=== PATIENT | male | born 1970 | race American Indian/Alaskan Native ===

== ENCOUNTER 2017-03-13 13:19 | Emergency (ER) | payer BC ==
[2017-03-13 13:29] VITALS: BP 147/83
[2017-03-13] MEDS ORDERED: NACL 0.9% 1000 ML 1,000 ML IV ONE (14:05)
[2017-03-13] MEDS ORDERED: PEPCID IV ONE (14:05)
[2017-03-13] MEDS ORDERED: BENADRYL IV ONE (16:09)
--- NOTE | 2017-03-13 18:43 | Emergency Department Report ---
Entered by FILIPPO SANTOS, acting as scribe for BRITTANY MCCOLLUM NP. ED Allergic Reaction HPI - General Chief complaint: Allergic Reaction Stated complaint: ALLERGIC REACTION Time Seen by Provider: 03/13/17 14:03 Source: patient Mode of arrival: Ambulatory Limitations: No Limitations - History of Present Illness Initial Comments: This is a 47 y/o male, nontoxic, well nourished in appearance, no acute signs of distress with a PMHx of IDDM presents with an allergic reaction that began this morning. Patient states he was stung by a bee on his right hand and left arm and subsequently began to have itching to his right hand and left arm. Patient denies any facial swelling, lip/tongue swelling, rash, hoarseness, throat closing sensation, nausea, vomiting, , fever, chills, drroling, hoarseness, chest pain, SOB, MEMBRENO or dizziness, numbness, and tingling. Took Bendaryl 1 hour [employer] with no relief. NKDA. CHATTERJEE Complaint: allergic reaction -: This morning Exposure: insect bite (bee sting) Symptoms: itching (to right hand and left arm) Severity: mild Treatment Prior to Arrival: benadryl Previous Allergy History: none - Related Data Previous Rx's Medication Instructions Recorded Last Taken Type diphenhydrAMINE [Benadryl CAP] 25 mg PO Q6HR PRN #20 capsule 03/13/17 Unknown Rx predniSONE [Deltasone] 20 mg PO BID #10 tab 03/13/17 Unknown Rx Allergies Allergy/AdvReac Type Severity Reaction Status Date / Time No Known Allergies Allergy Unverified 03/13/17 13:26 ED Review of Systems Comment: All other systems reviewed and negative Constitutional: denies: chills, fever Eyes: denies: eye pain, eye discharge, vision change ENT: denies: ear pain, throat pain, dental pain, hearing loss, epistaxis, congestion Respiratory: denies: cough, orthopnea, shortness of breath, SOB with exertion, SOB at rest, stridor, wheezing Cardiovascular: denies: chest pain, palpitations, dyspnea on exertion, orthopnea , edema, syncope, paroxysmal nocturnal dyspnea Endocrine: no symptoms reported Gastrointestinal: denies: abdominal pain, nausea, vomiting, diarrhea Genitourinary: denies: urgency, dysuria Musculoskeletal: denies: back pain, joint swelling, arthralgia Skin: other (itching to right hand and left arm). denies: rash, lesions Neurological: denies: headache, weakness, paresthesias Psychiatric: denies: anxiety, depression Hematological/Lymphatic: denies: easy bleeding, easy bruising ED Past Medical Hx - Past Medical History Previous Medical History?: Yes Hx Diabetes: Yes - Surgical History Past Surgical History?: Yes Additional Surgical History: left knee - Family History Family history: no significant - Social History Smoking Status: Never Smoker Substance Use Type: None - Medications Home Medications: Home Medications Medication Instructions Recorded Confirmed Last Taken Type diphenhydrAMINE [Benadryl CAP] 25 mg PO Q6HR PRN #20 capsule 03/13/17 Unknown Rx predniSONE [Deltasone] 20 mg PO BID #10 tab 03/13/17 Unknown Rx ED Physical Exam - General Limitations: No Limitations General appearance: alert, in no apparent distress - Head Head exam: Present: atraumatic, normocephalic, normal inspection, other (no facial edema noted) - Eye Eye exam: Present: normal appearance, PERRL, EOMI. Absent: scleral icterus, conjunctival injection, nystagmus, periorbital swelling, periorbital tenderness Pupils: Present: normal accommodation - ENT ENT exam: Present: normal exam, normal orophraynx, mucous membranes moist, TM's normal bilaterally, normal external ear exam - Expanded ENT Exam Expanded Ear exam: Present: normal external inspection Mouth exam: Present: normal external inspection, tongue normal, other (no angioedema or lip swelling present). Absent: drooling, trismus, muffled voice, tongue elevation, laceration Teeth exam: Present: normal inspection Throat exam: Positive: normal inspection. Negative: tonsillar erythema, tonsillomegaly, tonsillar exudate, R peritonsillar mass, L peritonsillar mass - Neck Neck exam: Present: normal inspection, full ROM. Absent: tenderness, meningismus, lymphadenopathy, thyromegaly - Respiratory Respiratory exam: Present: normal lung sounds bilaterally. Absent: respiratory distress, wheezes, rales, rhonchi, stridor, chest wall tenderness, accessory muscle use, decreased breath sounds, prolonged expiratory - Cardiovascular Cardiovascular Exam: Present: regular rate, normal rhythm, normal heart sounds. Absent: systolic murmur, diastolic murmur, rubs, gallop - GI/Abdominal GI/Abdominal exam: Present: soft, normal bowel sounds. Absent: distended, tenderness, guarding, rebound, rigid - Rectal Rectal exam: Present: deferred - Extremities Exam Extremities exam: Present: normal inspection, full ROM, normal capillary refill. Absent: tenderness, pedal edema, joint swelling, calf tenderness - Expanded Upper Extremity Exam Left General: Present: normal inspection (bilaterally). Absent: laceration, abrasion , nail injury (#), foreign body, amputation, avulsion Shoulder Exam: Present: normal inspection (bilaterally), full ROM. Absent: tenderness, swelling, abrasion, laceration, ecchymosis, deformity, crepidus, dislocation, erythema, tenderness over AC joint Upper Arm exam: Present: normal inspection (bilaterally), full ROM. Absent: tenderness, swelling, abrasion, laceration, ecchymosis, deformity, crepidus, dislocation, erythema Elbow exam: Present: normal inspection (bilaterally), full ROM. Absent: tenderness, swelling, abrasion, laceration, ecchymosis, deformity, crepidus, dislocation, erythema, effusion, pain w/ pronation/supination, tenderness over radial head Forearm Wrist exam: Present: normal inspection (bilaterally), full ROM, other ( bee sting to left arm with no surrounding swelling, erythema, or drainage). Absent: tenderness, swelling, abrasion, laceration, ecchymosis, deformity, crepidus, dislocation, erythema, tenderness over anatomical snuff box, pain with axial thumb loading Hand Wrist exam: Present: normal inspection (bilaterally), full ROM, other (bee sting to right hand with no surrounding swelling, erythema, or drainage). Absent: tenderness, swelling, abrasion, laceration, ecchymosis, deformity, crepidus, dislocation, erythema, amputation, nail avulsion, subungual hematoma Neuro motor exam: Present: wrist extension intact, thumb opposition intact, thumb IP flexion intact, thumb adduction intact, fingers 2-5 abduction intact Neurosensory exam: Present: 2-point discrimination, radial nerve intact, ulnar nerve intact, median nerve intact Vascular: Present: normal capillary refill, radial pulse (2+), brachial pulse, ulnar pulse. Absent: vascular compromise, Pallo, pulse deficit radial art - Back Exam Back exam: Present: normal inspection, full ROM. Absent: tenderness, CVA tenderness (R), CVA tenderness (L), muscle spasm, paraspinal tenderness, vertebral tenderness, rash noted - Neurological Exam Neurological exam: Present: alert, oriented X3, CN II-XII intact, normal gait, reflexes normal. Absent: motor sensory deficit - Psychiatric Psychiatric exam: Present: normal affect, normal mood - Skin Skin exam: Present: warm, dry, intact, other (bee stings to right hand and left arm with no surrounding swelling, erythema, or drainage). Absent: rash ED Course Vital Signs 03/13/17 13:26 Temperature 98.8 F Pulse Rate 107 H Respiratory 18 Rate Blood Pressure 147/83 O2 Sat by Pulse 98 Oximetry - Reevaluation(s) Reevaluation #1: 03/13/17 15:37 Patient speaks in full sentences with no signs of distress noted. Reevaluation #2: 03/13/17 15:40 Patient state he feels much better after receiving solu-medrol, Pepcid and over- the-counter Benadryl. Patient denies any itching. Reevaluation #3: 03/13/17 16:09 Patient stated he would like some Benadryl IV because itching is coming back. PAtient is present at bedside and stated she will drive the patient home. I instructed patient not to drive due to sedation/drowiness from Benadryl . ED Disposition Clinical Impression: Allergic reaction Disposition: DC-01 TO HOME OR SELFCARE Is pt being admited?: No Does the pt Need Aspirin: No Condition: Stable Instructions: Prednisone (By mouth), Insect Bite or Sting (ED), Allergies (ED) Additional Instructions: Follow-up with a primary care doctor in 24 hours or if symptoms suggest shortness of breath, difficulty breathing, or any abnormal worsening symptoms return to emergency room as soon as possible. Prescriptions: diphenhydrAMINE [Benadryl CAP] 25 mg PO Q6HR PRN #20 capsule PRN Reason: Itching predniSONE [Deltasone] 20 mg PO BID #10 tab Referrals: PRIMARY CAREMD [Primary Care Provider] - 3-5 Days ALIA KAUR MD [Staff Physician] - 3-5 Days [facility] [Outside] - 3-5 Days [facility] [place] [Outside] - 3-5 Days Forms: Work/School Release Form(ED) This documentation as recorded by the DANIELLE whaley JASMINE,accurately reflects the service I personally performed and the decisions made by ,BRITTANY MCCOLLUM, JACQUELYN.
== END 2017-03-13 16:15 | disposition home or self-care (01) ==
LOC: ED 13:19
DX: T78.40XA Allergy, unspecified, initial encounter (principal); E11.9 Type 2 diabetes mellitus without complications
CPT/HCPCS: 96361; 96374; 96375; 99282; J1200; J2930; J7030